=== PATIENT | female | born 1965 | race Caucasian/White ===

== ENCOUNTER 2016-12-27 15:29 | Emergency (ER) | payer OTHER ==
[~2016-12-27 15:29] MED LIST: ASPIRIN EC81 MG PO; ATORVASTATIN CA20 M1 PO; BACTRIM DS TAB1 EAC2 PO; KEFLEX500 M4 PO; MIDODRINE HCL5 M1 PO; PAXIL10 M1 PO; [UNRECOGNIZED DRUG - OTHER] PO
[2016-12-27] MEDS ORDERED: SULFAMYLON60 GM EXT (15:47)
[2017-03-03] MEDS ORDERED: NICOTINE PATCH1 EAC2 TP (12:03)
[2017-03-09] MEDS ORDERED: HYDROCODON-ACE1 EA16 PO (10:46)
== END 2016-12-27 16:40 ==
LOC: EDMED 15:29
DX: L03.116 Cellulitis of left lower limb (principal); L25.9 Unspecified contact dermatitis, unspecified cause; I25.10 Atherosclerotic heart disease of native coronary artery without angina pectoris; Z95.5 Presence of coronary angioplasty implant and graft; Z79.82 Long term (current) use of aspirin; Z79.899 Other long term (current) drug therapy

== ENCOUNTER 2017-02-05 07:19 | Day surgery (SDC) | payer SELFPAY ==
[~2017-02-05 07:19] MED LIST changes: +SULFAMYLON60 GM EXT
[2017-03-03] MEDS ORDERED: NICOTINE PATCH1 EAC2 TP (12:03)
[2017-03-09] MEDS ORDERED: HYDROCODON-ACE1 EA16 PO (10:46)
== END 2017-02-05 12:45 ==
LOC: SHSB 07:19 → ORW 09:49 → PACU 10:39 → SHSB 11:20
PROC: 0HRMXK3 Replacement of Right Foot Skin with Nonautologous Tissue Substitute, Full Thickness, External Approach (ICD-10-PCS; principal; 2017-02-05)
PROC: 0JB70ZZ Excision of Back Subcutaneous Tissue and Fascia, Open Approach (ICD-10-PCS; 2017-02-05)
DX: S91.301A Unspecified open wound, right foot, initial encounter (principal); M67.873 Other specified disorders of tendon, right ankle and foot; L72.3 Sebaceous cyst; L97.519 Non-pressure chronic ulcer of other part of right foot with unspecified severity; I25.2 Old myocardial infarction; I25.10 Atherosclerotic heart disease of native coronary artery without angina pectoris; G44.229 Chronic tension-type headache, not intractable; J44.9 Chronic obstructive pulmonary disease, unspecified; F17.210 Nicotine dependence, cigarettes, uncomplicated; D69.2 Other nonthrombocytopenic purpura; Z79.2 Long term (current) use of antibiotics; Z79.82 Long term (current) use of aspirin; Z79.899 Other long term (current) drug therapy; Z85.038 Personal history of other malignant neoplasm of large intestine; Z90.49 Acquired absence of other specified parts of digestive tract; Z90.710 Acquired absence of both cervix and uterus; Z95.5 Presence of coronary angioplasty implant and graft; Z98.890 Other specified postprocedural states
CPT/HCPCS: J0171; J1580; J3370; Q4104